=== PATIENT | male | born 1965 | race Caucasian/White ===

== ENCOUNTER 2018-09-04 12:22 | Inpatient (IN) ==
[2018-09-04] MEDS ORDERED: KETOROLAC TROMETHAMINE 15 MG/ML VIAL IV STA (12:46)
[2018-09-04 13:01] LABS: Basophils # (auto) 0.02 K/uL (0-0.2); Basophils % (auto) 0.2 %; Eosinophils # (auto) 0.02 K/uL (0-0.5); Eosinophils % (auto) 0.2 %; Hematocrit (blood only) 48.4 % (42-52); Hemoglobin 16.9 g/dL (14.0-18.0); Immature Granulocytes # (auto) 0.02 K/uL (0.00-0.02); Immature Granulocytes % (auto) 0.2 %; Lymphocytes # (auto) 1.66 K/uL (1.2-3.4); Lymphocytes % (auto) 14.4 %; Mean Corpuscular Hgb Conc 34.9 g/dL (32-36); Mean Corpuscular Volume 87.7 fL (80-100); Mean Platelet Volume 9.1 fL (7.4-10.4); Monocytes # (auto) 0.94 K/uL (0.11-0.59); Monocytes % (auto) 8.1 %; Neutrophils # (auto) 8.88 K/uL (1.4-6.5); Neutrophils % (auto) 76.9 %; Platelet Count 246 K/uL (130-400); RDW Coefficient of Variation 13.1 % (11.5-14.5); RDW Standard Deviation 41.9 fL (36.4-46.3); Red Blood Count 5.52 M/uL (4.7-6.1); White Blood Count 11.54 K/uL (4.8-10.8)
[2018-09-04 13:36] LABS: Alanine Aminotransferase 43 U/L (12-78); Albumin Level 3.7 gm/dl (3.4-5.0); Aspartate Aminotransferase 28 U/L (15-37); BUN Creatinine Ratio 16.6 (10-20); Blood Urea Nitrogen 16 mg/dl (7-18); Carbon Dioxide 27 mmol/L (21-32); Chloride 104 mmol/L (98-107); Creatinine Clr Calc Pharmacy 104.4 ml/min; Est GFR (African American) 101.8; Est GFR (Non-African American) 87.8; Glucose 104 mg/dl (70-99); Potassium 3.5 mmol/L (3.5-5.1); Sodium 136 mmol/L (136-145)
[2018-09-04 13:40] LABS: Albumin Globulin Ratio 0.9 (0.9-2); Alkaline Phosphatase 110 U/L (45-117); Bilirubin,Total 2.6 mg/dl (0.2-1); Globulin 4.1 gm/dl (2.5-4.0); Total Protein 7.8 gm/dl (6.4-8.2); Troponin I < 0.015 ng/ml (0-0.045)
--- NOTE | 2018-09-04 14:08 | Emergency Department Note ---
History of Present Illness General Chief complaint: Chest Pain Stated complaint: CHEST PAIN Source: patient Mode of arrival: ambulatory Limitations: no limitations History of Present Illness Maximum Pain Intensity: 10 This patient is a 52-year-old male who presents to the emergency department complaining of left-sided chest pain. The patient reports that he first developed some discomfort yesterday which has been gradually worsening. He states the pain feels like it is under his left rib cage and makes it difficult to breathe. He took Excedrin yesterday which did give him some relief. He states that the pain is "debilitating" and rates the discomfort a 7/10. He was seen at [facility] and they told him they saw a mass on his chest x-ray and referred him here. He denies any history of heart or lung problems. He denies recent travel. He is not a smoker. He reports his father had an [place] in his 50s. He denies any other family history of heart disease or blood clots. The patient does report that he spread something from us control on his grass this weekend and is unsure if he could have inhaled some of this. He denies any fevers, cough, palpitations or syncope. Home Medications Home Medications Medication Instructions Recorded Confirmed Type daekrsm-nemjamrrdtkcb-sjhpfwbs 2 tab PO Q6H PRN 09/04/18 09/04/18 History [Excedrin Extra Strength] rhejuvcquafiz-WM-saqfvkcygrzmr 30 ml PO DIRECTED 09/04/18 09/04/18 History [Vicks NyQuil Cold/Flu (cpm)] diclofenac sodium 50 mg PO DIRECTED PRN 09/04/18 09/04/18 History Allergies Allergy/AdvReac Type Severity Reaction Status Date / Time No Known Allergies Allergy Unverified 09/04/18 14:07 Past Med/Surg History Medical History No significant past medical history No significant past surgical history Family History Other Coronary heart disease Stroke Social History Preferred Language: Setswana Communication Ability: Effective Bond Broker Required: No Beliefs That Will Affect Care: None Current Living Situation: Spouse Other Information That Helps Us Care for You: No Feels Safe at Home: Yes Safety Concerns: Feels Safe At This Time Smoking Status: Never smoker Do You Dip or Chew Tobacco: No Second Hand Exposure: No Tobacco Cessation Education Requested by Patient: No Hx Alcohol Use: Yes Alcohol type: beer Hx Substance Use: No Review of Systems A total of 10 systems reviewed and were otherwise negative Physical Exam Vital Signs Vital Signs - 24 hr 09/04/18 12:23 09/04/18 15:38 09/04/18 15:42 Temperature 36.8 C Temperature Source Oral Sepsis New/Unexplained Change in Mental Status No Sepsis Action Taken by Nursing No Action Required Pulse Rate 98 H Pulse Rate [Left Finger] 96 H Respiratory Rate 20 20 Respiratory Effort / Characteristics Non-Labored Non-Labored Respiratory Depth Normal Normal Respiratory Pattern Blood Pressure 149/91 H Blood Pressure [Left Arm] Blood Pressure [Right Arm] 142/102 H Blood Pressure Mean 110 Blood Pressure Mean [Left Arm] Blood Pressure Mean [Right Arm] 115 Blood Pressure Position [Left Arm] Pulse Oximetry 97 94 Oxygen Delivery Method Room Air Room Air 09/04/18 17:06 09/04/18 17:23 09/04/18 18:27 Temperature Temperature Source Sepsis New/Unexplained Change in Mental Status Sepsis Action Taken by Nursing Pulse Rate 90 Pulse Rate [Left Finger] 88 Respiratory Rate 18 Respiratory Effort / Characteristics Non-Labored Respiratory Depth Normal Respiratory Pattern Blood Pressure Blood Pressure [Left Arm] Blood Pressure [Right Arm] 125/93 Blood Pressure Mean Blood Pressure Mean [Left Arm] Blood Pressure Mean [Right Arm] 103 Blood Pressure Position [Left Arm] Pulse Oximetry 96 Oxygen Delivery Method Room Air Room Air 09/04/18 18:29 Temperature 37 C Temperature Source Oral Sepsis New/Unexplained Change in Mental Status Sepsis Action Taken by Nursing Pulse Rate Pulse Rate [Left Finger] 88 Respiratory Rate 20 Respiratory Effort / Characteristics Non-Labored Spontaneous Respiratory Depth Respiratory Pattern Regular Blood Pressure Blood Pressure [Left Arm] 138/87 Blood Pressure [Right Arm] Blood Pressure Mean Blood Pressure Mean [Left Arm] 104 Blood Pressure Mean [Right Arm] Blood Pressure Position [Left Arm] Sitting Pulse Oximetry 94 Oxygen Delivery Method Room Air VITALS: Vitals are noted on the nurse's note and reviewed by myself. Vital signs stable. GENERAL: This is a 52-year-old male, in no acute distress, nondiaphoretic, well- developed well-nourished. SKIN: The skin was without rashes. EARS: External auditory canals clear, tympanic membranes pearly monique without e rythema or effusion bilaterally. EYES: Pupils equal round and reactive to light and accommodation. NOSE: Patent, turbinates without inflammation or discharge. MOUTH: Mucous membranes moist. Tonsils are not enlarged. Pharynx without erythema or exudate. NECK: Supple without nuchal rigidity. No lymphadenopathy. HEART: Regular rate and rhythm without murmurs gallops or rubs. LUNGS: Clear to auscultation bilaterally without wheezes, rales or rhonchi. No retractions or accessory muscle use. ABDOMEN: Positive bowel sounds x 4. Soft, nontender to palpation. No guarding or rebound tenderness. MUSCULOSKELETAL: No reproducible tenderness to palpation. NEURO: Patient was alert and oriented to person place and time. Course Consultations Consultation #1: Dr. Scout MAHMOOD hospitalist Administered Medications Heparin Sodium/Dextrose (Heparin Sodium/Dextrose) 25,000 units in 500 mls @ 31 mls/hr IV .Q16H8M [facility]; Protocol Stop: 10/04/18 18:29 Last Admin: 09/04/18 17:15 Dose: 1,550 units/hr, 31 mls/hr Documented by: [id number] Cosigned by: [id number] Oxycodone HCl (Roxicodone Immediate Rel) 5 mg PO Q4 PRN PRN Reason: Pain Stop: 09/18/18 18:22 Last Admin: 09/04/18 19:53 Dose: 5 mg Documented by: [id number] Discontinued Medications Heparin Sodium (Porcine) (Heparin Sodium (Porcine)) Confirm Administered Dose 10,000 units .ROUTE .STK-MED ONE Stop: 09/04/18 16:55 Last Admin: 09/04/18 17:08 Dose: 7,000 units Documented by: [id number] Cosigned by: [id number] Heparin Sodium/Dextrose () 1 ea IV NOW STA; Protocol Stop: 09/04/18 15:04 Last Admin: 09/04/18 17:12 Dose: Not Given Documented by: [id number] Heparin Sodium/Dextrose (Heparin Sodium/Dextrose) Confirm Administered Dose 25,000 units IV .STK-MED ONE Stop: 09/04/18 16:54 Last Admin: 09/04/18 17:08 Dose: 31 ml Documented by: [id number] Cosigned by: [id number] Heparin Sodium/Dextrose () 1 ea IV ONE ONE; Protocol Stop: 09/04/18 18:24 Last Admin: 09/04/18 18:39 Dose: 1 ea Documented by: [id number] Ioversol (Optiray 320 125ml) 86 ml IV ONCE PRN PRN Reason: Interaction Checking Stop: 09/08/18 14:26 Last Admin: 09/04/18 14:27 Dose: 86 ml Documented by: [id number] Ketorolac Tromethamine (Toradol) 15 mg IV NOW STA Stop: 09/04/18 12:47 Last Admin: 09/04/18 12:50 Dose: 15 mg Documented by: [id number] Medical Decision Making Differential Diagnosis Differential diagnosis includes acute coronary syndrome, pulmonary embolism, pneumothorax, pericarditis, myocarditis, endocarditis, anxiety, musculoskeletal pain, GERD, costochondritis, pneumonia, among others. Home Medications Current Medication List: was personally reviewed by me Laboratory Data Attestation: I reviewed the patient's lab results. Result diagrams: 09/04/18 12:47 09/04/18 12:47 Lab Results 09/04/18 09/04/18 09/04/18 Range/Units 12:47 12:47 15:31 WBC 11.54 H (4.8-10.8) K/uL RBC 5.52 (4.7-6.1) M/uL Hgb 16.9 (14.0-18.0) g/dL Hct 48.4 (42-52) % MCV 87.7 (80-100) fL MCH 30.6 (25-34) pg MCHC 34.9 (32-36) g/dL RDW Std Deviation 41.9 (36.4-46.3) fL RDW Coeff of Radha 13.1 (11.5-14.5) % Plt Count 246 (130-400) K/uL MPV 9.1 (7.4-10.4) fL Immature Gran % (Auto) 0.2 % Neut % (Auto) 76.9 % Lymph % (Auto) 14.4 % Sawyer % (Auto) 8.1 % Eos % (Auto) 0.2 % Baso % (Auto) 0.2 % Immature Gran # (Auto) 0.02 (0.00-0.02) K/uL Neut # (Auto) 8.88 H (1.4-6.5) K/uL Lymph # (Auto) 1.66 (1.2-3.4) K/uL Sawyer # (Auto) 0.94 H (0.11-0.59) K/uL Eos # (Auto) 0.02 (0-0.5) K/uL Baso # (Auto) 0.02 (0-0.2) K/uL PT 10.5 (9.0-12.0) Seconds INR 1.0 (0.9-1.1) APTT 24.3 (21.0-31.0) Seconds PTT Ratio 0.9 Sodium 136 (136-145) mmol/L Potassium 3.5 (3.5-5.1) mmol/L Chloride 104 (98-107) mmol/L Carbon Dioxide 27 (21-32) mmol/L Anion Gap 5.0 (3-11) BUN 16 (7-18) mg/dl Creatinine 0.99 (0.6-1.4) mg/dl Est Cr Clr Drug Dosing 104.4 ml/min Est GFR ( Amer) 101.8 Est GFR (Non-Af Amer) 87.8 BUN/Creatinine Ratio 16.6 (10-20) Glucose 104 H (70-99) mg/dl Calcium 9.0 (8.5-10.1) mg/dl Total Bilirubin 2.6 H (0.2-1) mg/dl AST 28 (15-37) U/L ALT 43 (12-78) U/L Alkaline Phosphatase 110 (45-117) U/L Troponin I < 0.015 (0-0.045) ng/ml Total Protein 7.8 (6.4-8.2) gm/dl Albumin 3.7 (3.4-5.0) gm/dl Globulin 4.1 H (2.5-4.0) gm/dl Albumin/Globulin Ratio 0.9 (0.9-2) Imaging Data Attestation: I personally reviewed and interpreted this imaging study as fol lows: Radiologist's Impression: CT angio chest PE protocol FINDINGS: Thoracic aorta is normal in course and caliber. There are bibasilar parenchymal infiltrative changes. There is a small focal consolidative infiltrate lateral aspect left upper lobe. There are filling defects within the second third order vessels of the left lower lobe pulmonary vasculature as well as right upper lobe pulmonary vasculature. There is no evidence for a major central or saddle embolus. IMPRESSION: 1. Study is positive for bilateral pulmonary emboli. 2. Basilar parenchymal infiltrative change. 3. Small focal consolidative infiltrate lateral aspect left upper lobe. 4. No evidence for pulmonary arterial hypertension or right heart strain. BILATERAL LOWER EXTREMITY VENOUS DOPPLER HISTORY: Pulmonary embolus. Assess for DVT. COMPARISON STUDY: None. FINDINGS: There is normal compressibility, flow, and augmentation within the bilateral lower extremity deep venous systems. IMPRESSION: No DVT within the right or left lower extremity. ECG Data Attestation: I personally reviewed and interpreted this ECG as follows: Indication: chest pain Rate (beats per minute): 87 Rhythm: normal sinus Findings: no acute ischemic change and no ectopy Comparison ECG Date: no prior available Blood Pressure Blood Pressure Findings: Elevated blood pressure Blood Pressure Disposition: further management by hospitalist [facility] Narrative The patient is a 52-year-old male who presents today complaining of left-sided chest pain and shortness of breath. Labs revealed a mild leukocytosis. CT of the chest was performed and showed bilateral PEs. Troponin was not elevated and no evidence of right heart strain on CT. Patient is hemodynamically stable. CT scan did show some questionable infiltrates in left lower lung, although I would question whether this could be pulmonary infarct given patient's significant amount of pain. Pain was well controlled here with a dose of IV Toradol. Patient does not have any major risk factors for PE. Bilateral Doppler ultrasounds were performed. Hypercoagulable studies were ordered. Patient was started on a heparin bolus and drip. [facility]. Impression & Plan Pulmonary emboli Critical Care Time I have personally spent greater than 35 minutes of critical care time in the direct management of this patient. This includes bedside care, interpretation of diagnostic studies, and testing, discussion with consultants, patient, and family members, and other required patient management activities. This 35 minutes is in excess of all separately billable procedures. Critical Care Time: Yes Total Critical Care Time: 35 Discharge Plan Visit Data *Final* Discharge Date/Time: 09/04/18 17:23 Chief Complaint: Chest Pain Stated Complaint: CHEST PAIN ED Provider: Mata Damon ED Midlevel Provider: Carol Lal Discharge Problem: Pulmonary emboli Patient Disposition: Admitted As Inpatient Discharge Instructions Interventions: ED Discharge Assessment Last Done: 09/04/18 17:23 Discharge Problem: Pulmonary emboli Qualifiers: Pulmonary embolism type: unspecified Chronicity: acute Acute cor pulmonale presence: without acute cor pulmonale Qualified Code(s): I26.99 - Other pulmonary embolism without acute cor pulmonale
[2018-09-04] MEDS ORDERED: OPTIRAY 320 125ml IV PRN (14:27)
--- NOTE | 2018-09-04 14:35 | CT Scan Report ---
CT angio chest PE protocol CT DOSE: 508.26 mGy.cm HISTORY: Chest pain left sided cp, infiltrate vs mass on outside cxr TECHNIQUE: Multiaxial CT images of the chest were performed following the intravenous administration of contrast to evaluate the pulmonary arteries. Maximal intensity projection images were also obtaine d. A dose lowering technique was utilized adhering to the principles of ALARA. COMPARISON STUDY: None. FINDINGS: Thoracic aorta is normal in course and caliber. There are bibasilar parenchymal infiltrative changes. There is a small focal consolidative infiltrate lateral aspect left upper lobe. There are filling defects within the second third order vessels of the left lower lobe pulmonary vasc ulature as well as right upper lobe pulmonary vasculature. There is no evidence for a major central o r saddle embolus. IMPRESSION: 1. Study is positive for bilateral pulmonary emboli. 2. Basilar parenchymal infiltrative change. 3. Small focal consolidative infiltrate lateral aspect left upper lobe. 4. No evidence for pulmonary arterial hypertension or right heart strain. The above report was generated using voice recognition software. It may contain grammatical, syntax or spelling errors. Electronically signed by: Benjy Mak M.D. 09/04/2018 2:34 PM
--- NOTE | 2018-09-04 15:38 | History & Physical Report ---
Date of Service September 04, 2018 Assessment & Plan (1) Pulmonary emboli: Patient with bilateral PEs. Presently hemodynamically stable, NAD, not on supplemental O2. No clearly defined risk factors for DVT/PE. Patient is to have [place]-cancer screening performed by PCP. PSA normal by report. Hypercoagulable workup sent in ER. Patient with significant chest pain on arrival, improved with dose of Toradol 15mg. -Admit to medical floor with telemetry monitoring -Follow results of hypercoag workup and bilateral LE dopplers from ER -Heparin gtt -Pain control with Tylenol and Oxy IR PRN -Initiate oral anticoagulation in AM Present on Admission?: Yes (2) Leukocytosis: WBC=11.54. Most likely reactive. Patient denies fevers/chills/sweats or other complaints that may indicate underlying infectious process -Repeat CBC in AM -Continue to monitor for infection Present on Admission?: Yes (3) Elevated bilirubin: T-bili=2.6. No RUQ pain/tenderness -Repeat LFTs in AM -May consider outpatient RUQUS F/E/N- Heplock. Electrolytes WNL. Regular diet Ppx - Heparin gtt as above for PE tx Code - Full Dispo - Admit to medical floor with telemetry History of Present Illness Chief Complaint: bilateral pulmonary emboli Primary Care Provider: Eyal Patterson MD Miky Wiggins is a pleasant 52yo C male with no significant past medical or surgical history presenting with bandlike chest pain that started this AM. Pain is severe, located underneath his ribs, 10/10 in severity, L >R. Pain is pleuritic and worse with coughing. Denies chest pain/palpitations/dizziness. Denies fevers/chills/sweats. Had a sore throat 2 weeks ago that quickly resolved, no other URI complaints. Patient was seen at [facility] and had a CXR which was read as a possible mass. He was sent to the ER for additional workup. Patient hemodynamically stable, no O2 requirement, pain controlled with Toradol 15mg IV x 1 dose. CTA performed revealed bilateral PE as well as basilar parenchymal infiltrative change and small focal consolidative infiltrate in the RAEANN. No evidence of PAH or right heart strain. ER Course: Heparin gtt, Toradol Allergies Allergy/AdvReac Type Severity Reaction Status Date / Time No Known Allergies Allergy Unverified 09/04/18 14:07 Home Medications Home Medications Medication Instructions Recorded Confirmed Type nfbuwko-ljeoufpscatln-otfpdfqh 2 tab PO Q6H PRN 09/04/18 09/04/18 History [Excedrin Extra Strength] jafarwlubygif-JJ-tlhkbpracnfcz 30 ml PO DIRECTED 09/04/18 09/04/18 History [Vicks NyQuil Cold/Flu (cpm)] diclofenac sodium 50 mg PO DIRECTED PRN 09/04/18 09/04/18 History Past Med/Surg History Medical History No significant past medical history No significant past surgical history Family History Other Coronary heart disease Stroke Social History Preferred Language: Romansh Communication Ability: Effective Commercial Attorney Required: No Beliefs That Will Affect Care: None Current Living Situation: Spouse Other Information That Helps Us Care for You: No Feels Safe at Home: Yes Safety Concerns: Feels Safe At This Time Smoking Status: Never smoker Do You Dip or Chew Tobacco: No Second Hand Exposure: No Tobacco Cessation Education Requested by Patient: No Hx Alcohol Use: Yes Alcohol type: beer Hx Substance Use: No Review of Systems Review of Systems: All systems reviewed & are unremarkable except as noted in HPI & below pain under ribs bilaterally, L > R Physical Exam Physical Exam: General: patient resting comfortably, NAD, non-toxic in appearance, AA&O x 4 Skin: warm, dry, intact, no rashes or lesions HEENT: NC/AT, PERRL, EOMI, anicteric sclera, conjunctiva without injection, external ear normal to inspection and nontender, nares patent, moist mucus membranes, dentition intact, no oropharyngeal lesions, neck supple, trachea midline, no LAD, no thyromegaly, no JVD Heart: +S1/S2, regular, no m/r/g Lungs: equal air entry bilaterally, no rhonchi/wheezes, bibasilar crackles Abd: +BS, soft, NT/ND, no masses/organomegaly/ascites Ext: warm, 2+ pulses in UE/LE bilaterally, no clubbing/cyanosis or edema Neuro: nonfocal, patient AA&O x 4, speech intact, no facial droop, moving all extremities on command with equal strength 5/5 Results & Data Vital Signs (Past 12 Hours) Vital Signs Temp Pulse Resp BP Pulse Ox 09/04/18 12:23 36.8 C 98 H 20 149/91 H 97 Laboratory Results Lab Results 09/04/18 09/04/18 Range/Units 12:47 12:47 WBC 11.54 H (4.8-10.8) K/uL RBC 5.52 (4.7-6.1) M/uL Hgb 16.9 (14.0-18.0) g/dL Hct 48.4 (42-52) % MCV 87.7 (80-100) fL MCH 30.6 (25-34) pg MCHC 34.9 (32-36) g/dL RDW Std Deviation 41.9 (36.4-46.3) fL RDW Coeff of Radha 13.1 (11.5-14.5) % Plt Count 246 (130-400) K/uL MPV 9.1 (7.4-10.4) fL Immature Gran % (Auto) 0.2 % Neut % (Auto) 76.9 % Lymph % (Auto) 14.4 % Falls % (Auto) 8.1 % Eos % (Auto) 0.2 % Baso % (Auto) 0.2 % Immature Gran # (Auto) 0.02 (0.00-0.02) K/uL Neut # (Auto) 8.88 H (1.4-6.5) K/uL Lymph # (Auto) 1.66 (1.2-3.4) K/uL Falls # (Auto) 0.94 H (0.11-0.59) K/uL Eos # (Auto) 0.02 (0-0.5) K/uL Baso # (Auto) 0.02 (0-0.2) K/uL Sodium 136 (136-145) mmol/L Potassium 3.5 (3.5-5.1) mmol/L Chloride 104 (98-107) mmol/L Carbon Dioxide 27 (21-32) mmol/L Anion Gap 5.0 (3-11) BUN 16 (7-18) mg/dl Creatinine 0.99 (0.6-1.4) mg/dl Est Cr Clr Drug Dosing 104.4 ml/min Est GFR ( Amer) 101.8 Est GFR (Non-Af Amer) 87.8 BUN/Creatinine Ratio 16.6 (10-20) Glucose 104 H (70-99) mg/dl Calcium 9.0 (8.5-10.1) mg/dl Total Bilirubin 2.6 H (0.2-1) mg/dl AST 28 (15-37) U/L ALT 43 (12-78) U/L Alkaline Phosphatase 110 (45-117) U/L Troponin I < 0.015 (0-0.045) ng/ml Total Protein 7.8 (6.4-8.2) gm/dl Albumin 3.7 (3.4-5.0) gm/dl Globulin 4.1 H (2.5-4.0) gm/dl Albumin/Globulin Ratio 0.9 (0.9-2) Medications Administered CT angio chest PE protocol CT DOSE: 508.26 mGy.cm HISTORY: Chest pain left sided cp, infiltrate vs mass on outside cxr TECHNIQUE: Multiaxial CT images of the chest were performed following the intravenous administration of contrast to evaluate the pulmonary arteries. Maximal intensity projection images were also obtained. A dose lowering technique was utilized adhering to the principles of ALARA. COMPARISON STUDY: None. FINDINGS: Thoracic aorta is normal in course and caliber. There are bibasilar parenchymal infiltrative changes. There is a small focal consolidative infiltrate lateral aspect left upper lobe. There are filling defects within the second third order vessels of the left lower lobe pulmonary vasculature as well as right upper lobe pulmonary vasculature. There is no evidence for a major central or saddle embolus. IMPRESSION: 1. Study is positive for bilateral pulmonary emboli. 2. Basilar parenchymal infiltrative change. 3. Small focal consolidative infiltrate lateral aspect left upper lobe. 4. No evidence for pulmonary arterial hypertension or right heart strain. The above report was generated using voice recognition software. It may contain grammatical, syntax or spelling errors. Electronically signed by: Benjy Mak M.D. 09/04/2018 2:34 PM Dictated: 09/04/18 1429 Transcribed: 09/04/18 142 ECG Additional Comments: The study reveals NSR at 87, normal asix, QC=488, QRS=94, TZy=072, no acute ischemic changes, no evidence of right heart strain Code Status & VTE Plan Code Status Full VTE Prophylaxis Plan VTE Prophylaxis will be ordered: Yes (1) Leukocytosis Leukocytosis type: unspecified Qualified Code(s): D72.829 - Elevated white blood cell count, unspecified (2) Pulmonary emboli Acute cor pulmonale presence: without acute cor pulmonale Chronicity: acute Pulmonary embolism type: other Qualified Code(s): I26.99 - Other pulmonary embolism without acute cor pulmonale
--- NOTE | 2018-09-04 16:39 | Ultrasound Report ---
BILATERAL LOWER EXTREMITY VENOUS DOPPLER HISTORY: Pulmonary embolus. Assess for DVT. COMPARISON STUDY: None. FINDINGS: There is normal compressibility, flow, and augmentation within the bilateral lower extremit y deep venous systems. IMPRESSION: No DVT within the right or left lower extremity. Electronically signed by: Sloan Haque M.D. 09/04/2018 4:38 PM
[2018-09-04 16:52] LABS: Partial Thromboplastin Ratio 0.9; Partial Thromboplastin Time 24.3 Seconds (21.0-31.0); Prothrombin Time 10.5 Seconds (9.0-12.0)
[2018-09-04] MEDS ORDERED: HEPARIN 25000 UNIT/500 ML D5W IV ONE (16:53)
[2018-09-04] MEDS ORDERED: HEPARIN SOD 5,000 UNIT/0.5 ML VIAL ONE (16:54)
[2018-09-04] MEDS: Heparin Adult STANDARD Wt-Based Dextrose 5% 25,000 units/500 mL IV SCH (17:15)
[2018-09-04] MEDS ORDERED: ONDANSETRON INJ 2 MG/ML 2 ML VIAL IV PRN (18:23)
[2018-09-04] MEDS ORDERED: Heparin IV Standard *NO* Bolus IV ONE (18:23)
[2018-09-04] MEDS ORDERED: ACETAMINOPHEN 325 MG TAB PO PRN (18:23)
[2018-09-04] MEDS: OXYCODONE HCL IR 5 MG TAB (IMMEDIATE RELEASE) PO PRN (19:53)
[2018-09-04 23:36] LABS: Partial Thromboplastin Time 55.5 Seconds (21.0-31.0)
[2018-09-05] MEDS: OXYCODONE HCL IR 5 MG TAB (IMMEDIATE RELEASE) PO PRN ×5 (04:15→23:13)
[2018-09-05] MEDS ORDERED: KETOROLAC TROMETHAMINE 15 MG/ML VIAL IV ONE (05:51)
[2018-09-05 08:05] LABS: Hematocrit (blood only) 43.9 % (42-52); Hemoglobin 15.2 g/dL (14.0-18.0); Mean Corpuscular Hgb Conc 34.6 g/dL (32-36); Mean Corpuscular Volume 88.2 fL (80-100); Mean Platelet Volume 9.1 fL (7.4-10.4); Platelet Count 226 K/uL (130-400); RDW Coefficient of Variation 13.2 % (11.5-14.5); RDW Standard Deviation 42.6 fL (36.4-46.3); Red Blood Count 4.98 M/uL (4.7-6.1); White Blood Count 10.53 K/uL (4.8-10.8)
[2018-09-05 08:25] LABS: Partial Thromboplastin Ratio 1.7
[2018-09-05 08:38] LABS: Albumin Level 3.1 gm/dl (3.4-5.0); Bilirubin Direct 0.5 mg/dl (0-0.2); Bilirubin,Total 2.6 mg/dl (0.2-1); Total Protein 6.7 gm/dl (6.4-8.2)
[2018-09-05] MEDS: Heparin Adult STANDARD Wt-Based Dextrose 5% 25,000 units/500 mL IV SCH (08:48)
[2018-09-05 09:02] LABS: Partial Thromboplastin Time 46.7 Seconds (21.0-31.0)
--- NOTE | 2018-09-05 11:07 | Hospitalist Progress Note ---
Date of Service September 05, 2018 Assessment & Plan (1) Pulmonary emboli: 2nd/3rd order vessels on CTA. Dopplers neg for DVT. No risk factors identified (no recent surgery, immobility, family history of VTE, known cancer, etc). Has been overall very healthy until the last few days. Currently on heparin. Will transition to eliquis BID if insurance cost is reasonable. Hypercoagulable w/u sent and is pending but again no family h/o VTE, miscarriages, etc. Agree w/ Dr. Butterfield that colonoscopy should be pursued as outpatient along with other routine cancer screenings. Plan 6 months of Rx. Has fairly loud s2 on cardiac exam -- check echo to look at RV, etc. Treat pleuritic pain as needed. Present on Admission?: Yes (2) Leukocytosis: Was ill on Tuesday and has RAEANN pneumonia on CTA chest. Would treat for RAEANN pneumonia - see below. Present on Admission?: Yes (3) Elevated bilirubin: T. bili 2.6. Repeat today similar. D. bili minimally elevated. T. bili in 2016 was also elevated in low-2 range. This likely presents Gilbert's. Could consider outpatient RUQ u/s and other work-up but again the chronicity and indirect hyperbilirubinemia suggests Gilbert's. I discussed this with the patient today. Present on Admission?: Yes (4) Community acquired pneumonia: RAEANN on CT chest. Mild infiltrates bases as well. I believe his fever/chills/etc on Tuesday was due to such. Would Rx for pneumonia w/ levaquin 750mg daily x 7 days. In light of unknown cause of PEs and unusual location for a portion of the pneumonia (RAEANN) would advise repeat CT chest in 6 weeks to ensure this RAEANN abnormality has resolved and is not a lung cancer. If pain is controlled, O2 sats stable w/ walking ,etc could potentially be d/c later tonight. Present on Admission?: Yes Subjective Main complaint is pleuritic pain requiring pain meds and toradol. Minimal STINSON. No dyspnea at rest. Had subjective fever, chills, and felt like he had the flu on . These symptoms have improved since then. No family h/o VTE. No recent surgery. No recent travel. No varicose veins. No immobility. Feeling well last few months -- no weight loss, fatigue, or anorexia. Review of Systems Constitutional: no weight loss Respiratory: + cough, + dyspnea on exertion and + pain on inspiration; no hemoptysis and no sputum production Cardiovascular: as per Subjective / HPI and + chest pain; no orthopnea, no paroxysmal nocturnal dyspnea and no edema Gastrointestinal: no abdominal pain Physical Exam Constitutional: well developed, well nourished and average body habitus; no acute distress and not ill appearing ENMT: external ear and nose normal, oropharynx normal Respiratory: no respiratory distress Auscultation: + rales (fine - bibasilar; good airation); no wheezes Cardiovascular: Rate/Rhythm: regular rate and regular rhythm Heart Sounds: normal S1; + abnormal S2 (loud P2) and no murmur Vessels: posterior tibial pulses present and dorsalis pedis pulses present; no JVD Extremities: no edema and no varicosities Gastrointestinal (Abdomen): normal bowel sounds, soft, nontender, no hepatosplenomegaly Psychiatric: A+Ox3, euthymic affect Lymphatic: no cervical lymphadenopathy Results & Data Vital Signs (Past 12 Hours) Vital Signs Temp Pulse Pulse Resp BP BP Pulse Ox 09/05/18 07:43 81 09/05/18 07:00 36.9 C 80 16 121/81 91 09/05/18 04:24 37.4 C 97 H 16 118/73 96 09/05/18 04:15 36.8 C 77 18 140/91 90 09/05/18 00:00 84 09/04/18 23:43 36.7 C 90 16 128/83 91 Laboratory Results Laboratory Results - last 24 hr 09/04/18 09/04/18 09/04/18 12:47 12:47 15:31 WBC 11.54 H RBC 5.52 Hgb 16.9 Hct 48.4 MCV 87.7 MCH 30.6 MCHC 34.9 RDW Std Deviation 41.9 RDW Coeff of Radha 13.1 Plt Count 246 MPV 9.1 Immature Gran % (Auto) 0.2 Neut % (Auto) 76.9 Lymph % (Auto) 14.4 [place] % (Auto) 8.1 Eos % (Auto) 0.2 Baso % (Auto) 0.2 Immature Gran # (Auto) 0.02 Neut # (Auto) 8.88 H Lymph # (Auto) 1.66 [place] # (Auto) 0.94 H Eos # (Auto) 0.02 Baso # (Auto) 0.02 PT 10.5 INR 1.0 APTT 24.3 PTT Ratio 0.9 Sodium 136 Potassium 3.5 Chloride 104 Carbon Dioxide 27 Anion Gap 5.0 BUN 16 Creatinine 0.99 Est Cr Clr Drug Dosing 104.4 Est GFR ( Amer) 101.8 Est GFR (Non-Af Amer) 87.8 BUN/Creatinine Ratio 16.6 Glucose 104 H Calcium 9.0 Total Bilirubin 2.6 H Direct Bilirubin AST 28 ALT 43 Alkaline Phosphatase 110 Troponin I < 0.015 Total Protein 7.8 Albumin 3.7 Globulin 4.1 H Albumin/Globulin Ratio 0.9 09/04/18 09/05/18 09/05/18 22:59 07:36 07:36 WBC 10.53 RBC 4.98 Hgb 15.2 Hct 43.9 MCV 88.2 MCH 30.5 MCHC 34.6 RDW Std Deviation 42.6 RDW Coeff of Radha 13.2 Plt Count 226 MPV 9.1 Immature Gran % (Auto) Neut % (Auto) Lymph % (Auto) [place] % (Auto) Eos % (Auto) Baso % (Auto) Immature Gran # (Auto) Neut # (Auto) Lymph # (Auto) [place] # (Auto) Eos # (Auto) Baso # (Auto) PT INR APTT 55.5 H* PTT Ratio 2.0 Sodium Potassium Chloride Carbon Dioxide Anion Gap BUN Creatinine Est Cr Clr Drug Dosing Est GFR ( Amer) Est GFR (Non-Af Amer) BUN/Creatinine Ratio Glucose Calcium Total Bilirubin 2.6 H Direct Bilirubin 0.5 H AST 27 ALT 38 Alkaline Phosphatase 106 Troponin I Total Protein 6.7 Albumin 3.1 L Globulin Albumin/Globulin Ratio 09/05/18 07:36 WBC RBC Hgb Hct MCV MCH MCHC RDW Std Deviation RDW Coeff of Radha Plt Count MPV Immature Gran % (Auto) Neut % (Auto) Lymph % (Auto) [place] % (Auto) Eos % (Auto) Baso % (Auto) Immature Gran # (Auto) Neut # (Auto) Lymph # (Auto) [place] # (Auto) Eos # (Auto) Baso # (Auto) PT INR APTT 46.7 H* PTT Ratio 1.7 Sodium Potassium Chloride Carbon Dioxide Anion Gap BUN Creatinine Est Cr Clr Drug Dosing Est GFR ( Amer) Est GFR (Non-Af Amer) BUN/Creatinine Ratio Glucose Calcium Total Bilirubin Direct Bilirubin AST ALT Alkaline Phosphatase Troponin I Total Protein Albumin Globulin Albumin/Globulin Ratio Diagnostic Findings b/l LE venous dopplers - neg for DVT (1) Pulmonary emboli Pulmonary embolism type: unspecified Chronicity: acute Acute cor pulmonale presence: without acute cor pulmonale Qualified Code(s): I26.99 - Other pulmonary embolism without acute cor pulmonale (2) Leukocytosis Leukocytosis type: unspecified Qualified Code(s): D72.829 - Elevated white blood cell count, unspecified (3) Community acquired pneumonia Laterality: left Lung location: upper lobe of lung Qualified Code(s): J18.1 - Lobar pneumonia, unspecified organism
[2018-09-05] MEDS: levoFLOXacin 750 MG TAB PO SCH (11:58)
[2018-09-05] MEDS ORDERED: ACETAMINOPHEN 1,000 MG/100 ML VIAL IV PRN (18:28)
[2018-09-05] MEDS: MoRPHine SULFATE 2 MG/ML CARP IV PRN (19:06)
[2018-09-05] MEDS: LIDOCAINE 5% 1 PATCH TD SCH (20:18)
[2018-09-05] MEDS: APIXABAN 5 MG TABLET PO SCH (20:18)
[2018-09-05] MEDS ORDERED: APIXABAN 2.5 MG TAB PO SCH (21:00)
[2018-09-06] MEDS: MoRPHine SULFATE 2 MG/ML CARP IV PRN (05:31)
[2018-09-06] MEDS: OXYCODONE HCL IR 5 MG TAB (IMMEDIATE RELEASE) PO PRN (05:58)
[2018-09-06] MEDS ORDERED: KETOROLAC TROMETHAMINE 15 MG/ML VIAL IV ONE (06:50)
[2018-09-06] MEDS: APIXABAN 5 MG TABLET PO SCH ×2 (08:03→20:30)
[2018-09-06] MEDS: LIDOCAINE 5% 1 PATCH TD SCH (08:04)
[2018-09-06] MEDS: levoFLOXacin 750 MG TAB PO SCH (11:42)
--- NOTE | 2018-09-06 17:20 | Hospitalist Progress Note ---
Date of Service September 06, 2018 Assessment & Plan (1) Pulmonary emboli: Bilateral PEs in the 2nd/3rd order vessels on CTA. Dopplers neg for DVT of the lower extremities bilaterally. No risk factors identified (no recent surgery, immobility, family history of VTE, known cancer, etc). Has been overall very healthy until the last few days. Was initially on heparin drip and has since been transitioned to a loading dose of Eliquis 10 mg p.o. twice daily Hypercoagulable w/u sent and is pending but again no family h/o VTE, miscarriages, etc. Echocardiogram only with grade 2 diastolic dysfunction but with normal right- sided function and pressure Not requiring oxygen but is mildly hypoxic with pulse ox of 90 to 91% on room air -Colonoscopy should be pursued as outpatient along with other routine cancer screenings. -Plan 6 months of Rx. -Continue spare use of Toradol and NSAIDs as needed for pleuritic chest pain, but gave caution with risk of increased bleeding -Discontinue morphine and other opioids as they do not help him -Continue incentive spirometry -Encourage ambulation (2) Leukocytosis: Was ill on Tuesday and has RAEANN pneumonia on CTA chest. Would treat for RAEANN pneumonia - see below. Leukocytosis now resolved (3) Elevated bilirubin: T. bili 2.6 upon admission and the repeat the next day with similar D. bili minimally elevated at 0.5. T. bili in 2015 was also elevated in low-2 range. This likely presents Gilbert's. Could consider outpatient RUQ u/s and other work-up but again the chronicity and indirect hyperbilirubinemia suggests Gilbert's. -Follow LFTs again in the morning (4) Community acquired pneumonia: RAEANN on CT chest. Mild infiltrates bases as well. I believe his fever/chills/etc on Tuesday prior to admission was due to such. -Continue to Rx for pneumonia w/ levaquin 750mg daily x 7 days. In light of unknown cause of PEs and unusual location for a portion of the pneumonia (RAEANN) would advise repeat CT chest in 6 weeks to ensure this RAEANN abnormality has resolved and is not a lung cancer. (5) DVT prophylaxis: On Eliquis for acute PE as above Disposition-remain overnight for continued pain control and hopeful for discharge to home tomorrow Subjective Patient reports the opioids are not helping at all with his pleuritic pain in the left side, however the Toradol dose he received this morning dramatically improved his pain for almost the entire day until this evening. He is requesting another dose this evening. We discussed that NSAIDs are also a blood thinner and does increase his risk for bleeding, but he reports that the only thing that has helped him. He denies shortness of breath except with movement when he is to take deep breaths. Denies nausea or vomiting. He is constipated. He reports he did check with multiple family members and there is no history of any blood clots or miscarriages in women and his family. Telemetry with sinus tachycardia and normal sinus rhythm with rates to the 80s to 100s Review of Systems Review of Systems: All systems reviewed & are unremarkable except as noted in HPI & below Physical Exam Constitutional: WD/WN, vitals as above Eyes: PERRL, conjunctivae normal, anicteric sclerae ENMT: external ear and nose normal, oropharynx normal Neck: trachea midline, no thyromegaly Respiratory: + abnormal respiratory effort (He has splinting with deep inspiration) Auscultation: no crackles, no rhonchi and no wheezes Cardiovascular: RRR, no murmur, no edema Gastrointestinal (Abdomen): normal bowel sounds, soft, nontender, no hepatosplenomegaly Musculoskeletal: Extremities: extremities normal to inspection; no cyanosis and no clubbing Skin: no rashes, warm and dry Neurologic: moves all extremities and awake; no focal motor deficits Psychiatric: A+Ox3, euthymic affect Results & Data Vital Signs (Past 12 Hours) Vital Signs Temp Pulse Pulse Resp BP BP Pulse Ox 09/06/18 16:20 92 H 09/06/18 15:43 36.7 C 91 H 18 121/83 91 09/06/18 12:22 37.0 C 100 H 18 119/80 90 09/06/18 08:00 94 H 09/06/18 07:42 36.9 C 93 H 18 129/89 92 (1) Leukocytosis Leukocytosis type: unspecified Qualified Code(s): D72.829 - Elevated white blood cell count, unspecified (2) Community acquired pneumonia Laterality: left Lung location: upper lobe of lung Qualified Code(s): J18.1 - Lobar pneumonia, unspecified organism (3) Pulmonary emboli Acute cor pulmonale presence: without acute cor pulmonale Chronicity: acute Pulmonary embolism type: unspecified Qualified Code(s): I26.99 - Other pulmonary embolism without acute cor pulmonale
[2018-09-06] MEDS: KETOROLAC TROMETHAMINE 15 MG/ML VIAL IV PRN (17:53)
[2018-09-06] MEDS: DOCUSATE SODIUM/SENNA 50/8.6MG TAB PO SCH (20:30)
[2018-09-07] MEDS: KETOROLAC TROMETHAMINE 15 MG/ML VIAL IV PRN (01:30)
[2018-09-07 08:03] LABS: Basophils # (auto) 0.02 K/uL (0-0.2); Basophils % (auto) 0.2 %; Eosinophils # (auto) 0.05 K/uL (0-0.5); Eosinophils % (auto) 0.6 %; Hematocrit (blood only) 41.3 % (42-52); Hemoglobin 13.9 g/dL (14.0-18.0); Immature Granulocytes # (auto) 0.03 K/uL (0.00-0.02); Immature Granulocytes % (auto) 0.4 %; Lymphocytes # (auto) 1.51 K/uL (1.2-3.4); Lymphocytes % (auto) 18.6 %; Mean Corpuscular Hgb Conc 33.7 g/dL (32-36); Mean Corpuscular Volume 89.2 fL (80-100); Monocytes # (auto) 0.84 K/uL (0.11-0.59); Monocytes % (auto) 10.4 %; Neutrophils # (auto) 5.66 K/uL (1.4-6.5); Neutrophils % (auto) 69.8 %; Platelet Count 258 K/uL (130-400); RDW Coefficient of Variation 13.1 % (11.5-14.5); RDW Standard Deviation 42.9 fL (36.4-46.3); Red Blood Count 4.63 M/uL (4.7-6.1); White Blood Count 8.11 K/uL (4.8-10.8)
[2018-09-07 08:31] LABS: Albumin Level 2.5 gm/dl (3.4-5.0); BUN Creatinine Ratio 21.3 (10-20); Bilirubin Direct 0.4 mg/dl (0-0.2); Calcium 8.7 mg/dl (8.5-10.1); Creatinine Clr Calc Pharmacy 115.5 ml/min; Est GFR (African American) 114.7; Potassium 3.5 mmol/L (3.5-5.1)
[2018-09-07 08:35] LABS: Bilirubin,Total 1.7 mg/dl (0.2-1); Total Protein 6.4 gm/dl (6.4-8.2)
[2018-09-07] MEDS: APIXABAN 5 MG TABLET PO SCH ×2 (10:09→20:43)
[2018-09-07] MEDS: LIDOCAINE 5% 1 PATCH TD SCH (10:09)
[2018-09-07] MEDS: levoFLOXacin 750 MG TAB PO SCH (15:37)
[2018-09-07] MEDS ORDERED: MAGNESIUM CITRATE 296 ML/BTL PO STA (18:00)
--- NOTE | 2018-09-07 18:01 | Hospitalist Progress Note ---
Date of Service September 07, 2018 Assessment & Plan (1) Pulmonary emboli: Bilateral PEs in the 2nd/3rd order vessels on CTA. Dopplers neg for DVT of the lower extremities bilaterally. No risk factors identified (no recent surgery, immobility, family history of VTE, known cancer, etc). Has been overall very healthy until the last few days. Was initially on heparin drip and has since been transitioned to a loading dose of Eliquis 10 mg p.o. twice daily-today is day #3 of 7, then will need to go to 5mg po bid Hypercoagulable w/u sent and is pending but again no family h/o VTE, miscarriages, etc. So far, only homocysteine is back and is within normal limits Echocardiogram only with grade 2 diastolic dysfunction but with normal right- sided function and pressure Not requiring oxygen but is mildly hypoxic with pulse ox of 90 to 91% on room air -ambulate with POx today -Colonoscopy should be pursued as outpatient along with other routine cancer screenings. -Plan 6 months of Rx. -Continue spare use of Toradol as needed for pleuritic chest pain, but gave caution with risk of increased bleeding -Discontinued morphine and other opioids as they do not help him -Continue incentive spirometry (2) Leukocytosis: Was ill on Tuesday and has RAEANN pneumonia on CTA chest. Would treat for RAEANN pneumonia - see below. Leukocytosis now resolved (3) Elevated bilirubin: T. bili 2.6 upon admission and the repeat the next day with similar, now much improved to 1.7 D. bili minimally elevated at 0.4. T. bili in 2016 was also elevated in low-2 range. This likely presents Gilbert's. Could consider outpatient RUQ u/s and other work-up but again the chronicity and indirect hyperbilirubinemia suggests Gilbert's. (4) Community acquired pneumonia: RAEANN on CT chest. Mild infiltrates bases as well. I believe his fever/chills/etc on Tuesday prior to admission was due to such. -Continue to Rx for pneumonia w/ levaquin 750mg daily x 7 days.Today is day #3 In light of unknown cause of PEs and unusual location for a portion of the pneumonia (RAEANN) would advise repeat CT chest in 6 weeks to ensure this RAEANN abnormality has resolved and is not a lung cancer. (5) Constipation: No BM in 6 days likely secondary to opioids and relative immobility in hospital -encouraged ambulation -continue senna/docusate -add bottle Mag citrate today (6) DVT prophylaxis: On Eliquis for acute PE as above Disposition-remain overnight again for continued pain control and hopeful for discharge to home tomorrow Subjective Pain is improved in the left ribs, hasn't taken a dose of toradol since 0130 today (17 hours ago). Does have a mild headache which he gets frequently but also normally drinks 2 soda bottles a day with caffeine and hasn't had any soda since admission. Has a dry cough today. Is worried about going home just yet, wants to stay another night. Also still no BM in 6 days. He wants to ambulate in the halls Tele with [facility] 90s-120s. Review of Systems Review of Systems: All systems reviewed & are unremarkable except as noted in HPI & below Physical Exam Constitutional: WD/WN, vitals as above Eyes: PERRL, conjunctivae normal, anicteric sclerae Neck: trachea midline, no thyromegaly Respiratory: + abnormal respiratory effort (He has splinting with deep inspiration and mild short dry cough) Auscultation: no crackles, no rhonchi and no wheezes Cardiovascular: RRR, no murmur, no edema Gastrointestinal (Abdomen): normal bowel sounds, soft, nontender, no hepatosplenomegaly Musculoskeletal: Extremities: extremities normal to inspection; no cyanosis and no clubbing Skin: no rashes, warm and dry Neurologic: moves all extremities and awake; no focal motor deficits Psychiatric: A+Ox3, euthymic affect Results & Data Vital Signs (Past 12 Hours) Vital Signs Temp Pulse Pulse Resp BP Pulse Ox 09/07/18 15:44 100 H 09/07/18 15:05 37.1 C 102 H 18 124/86 91 09/07/18 11:54 37.2 C 90 16 141/90 H 91 09/07/18 08:00 83 09/07/18 07:44 36.4 C L 88 18 139/88 92 Laboratory Results 09/07/18 09/07/18 09/04/18 Range/Units 07:27 07:27 15:31 WBC 8.11 (4.8-10.8) K/uL RBC 4.63 L (4.7-6.1) M/uL Hgb 13.9 L (14.0-18.0) g/dL Hct 41.3 L (42-52) % MCV 89.2 (80-100) fL MCH 30.0 (25-34) pg MCHC 33.7 (32-36) g/dL RDW Std Deviation 42.9 (36.4-46.3) fL RDW Coeff of Radha 13.1 (11.5-14.5) % Plt Count 258 (130-400) K/uL MPV 9.0 (7.4-10.4) fL Immature Gran % (Auto) 0.4 % Neut % (Auto) 69.8 % Lymph % (Auto) 18.6 % [place] % (Auto) 10.4 % Eos % (Auto) 0.6 % Baso % (Auto) 0.2 % Immature Gran # (Auto) 0.03 H (0.00-0.02) K/uL Neut # (Auto) 5.66 (1.4-6.5) K/uL Lymph # (Auto) 1.51 (1.2-3.4) K/uL [place] # (Auto) 0.84 H (0.11-0.59) K/uL Eos # (Auto) 0.05 (0-0.5) K/uL Baso # (Auto) 0.02 (0-0.2) K/uL Sodium 138 (136-145) mmol/L Potassium 3.5 (3.5-5.1) mmol/L Chloride 104 (98-107) mmol/L Carbon Dioxide 28 (21-32) mmol/L Anion Gap 6.0 (3-11) BUN 19 H (7-18) mg/dl Creatinine 0.89 (0.6-1.4) mg/dl Est Cr Clr Drug Dosing 115.5 ml/min Est GFR ( Amer) 114.7 Est GFR (Non-Af Amer) 99.0 BUN/Creatinine Ratio 21.3 H (10-20) Glucose 92 (70-99) mg/dl Calcium 8.7 (8.5-10.1) mg/dl Total Bilirubin 1.7 H (0.2-1) mg/dl Direct Bilirubin 0.4 H (0-0.2) mg/dl AST 34 (15-37) U/L ALT 44 (12-78) U/L Alkaline Phosphatase 107 (45-117) U/L Total Protein 6.4 (6.4-8.2) gm/dl Albumin 2.5 L (3.4-5.0) gm/dl Homocysteine 10.0 (<11.4) UMOL/L (1) Pulmonary emboli Pulmonary embolism type: unspecified Chronicity: acute Acute cor pulmonale presence: without acute cor pulmonale Qualified Code(s): I26.99 - Other pulmonary embolism without acute cor pulmonale (2) Leukocytosis Leukocytosis type: unspecified Qualified Code(s): D72.829 - Elevated white blood cell count, unspecified (3) Community acquired pneumonia Laterality: left Lung location: upper lobe of lung Qualified Code(s): J18.1 - Lobar pneumonia, unspecified organism
[2018-09-07] MEDS: DOCUSATE SODIUM/SENNA 50/8.6MG TAB PO SCH (20:43)
[2018-09-08] MEDS: KETOROLAC TROMETHAMINE 15 MG/ML VIAL IV PRN (00:42)
[2018-09-08] MEDS: APIXABAN 5 MG TABLET PO SCH (08:40)
[2018-09-08] MEDS: LIDOCAINE 5% 1 PATCH TD SCH (08:40)
[2018-09-08] MEDS ORDERED: IBUPROFEN 600 MG TAB PO PRN (10:10)
[2018-09-08] MEDS: levoFLOXacin 750 MG TAB PO SCH (12:28)
--- NOTE | 2018-09-08 16:39 | Discharge Summary ---
Date of Service September 08, 2018 Admission HPI Per Admitting Provider Miky Wiggins is a pleasant 52yo C male with no significant past medical or surgical history presenting with bandlike chest pain that started this AM. Pain is severe, located underneath his ribs, 10/10 in severity, L >R. Pain is pleuritic and worse with coughing. Denies chest pain/palpitations/dizziness. Denies fevers/chills/sweats. Had a sore throat 2 weeks ago that quickly resolved, no other URI complaints. Patient was seen at [facility] and had a CXR which was read as a possible mass. He was sent to the ER for additional workup. Patient hemodynamically stable, no O2 requirement, pain controlled with Toradol 15mg IV x 1 dose. CTA performed revealed bilateral PE as well as basilar parenchymal infiltrative change and small focal consolidative infiltrate in the RAEANN. No evidence of PAH or right heart strain. ER Course: Heparin gtt, Toradol Principal Diagnosis Pulmonary emboli Discharge Exam Constitutional WD/WN, vitals as above Eyes PERRL, conjunctivae normal, anicteric sclerae ENMT external ear and nose normal, oropharynx normal Neck trachea midline, no thyromegaly Respiratory normal respiratory effort Auscultation: + diminished lung sounds (at the left base); no crackles, no rhonchi and no wheezes Cardiovascular RRR, no murmur, no edema Gastrointestinal (Abdomen) normal bowel sounds, soft, nontender, no hepatosplenomegaly Musculoskeletal Extremities: extremities normal to inspection; no cyanosis and no clubbing Skin no rashes, warm and dry Neurologic moves all extremities and awake; no focal motor deficits Psychiatric A+Ox3, euthymic affect Discharge Data Allergies Allergy/AdvReac Type Severity Reaction Status Date / Time No Known Allergies Allergy Unverified 09/04/18 14:07 Consultations None Ordered Studies 09/04/18 12:45 CT angio chest PE protocol Stat 09/04/18 15:29 US venous doppler LE Stat Hospital Course (1) Pulmonary emboli: Bilateral PEs in the 2nd/3rd order vessels on CTA. Dopplers neg for DVT of the lower extremities bilaterally. No risk factors identified (no recent surgery, immobility, family history of VTE, known cancer, etc). Has been overall very healthy until the last few days prior to admission. Was initially on heparin drip and has since been transitioned to a loading dose of Eliquis 10 mg p.o. twice daily-today is day #4 of 7, then will need to go to 5mg po bid Hypercoagulable w/u sent and is pending but again no family h/o VTE, miscarriages, etc. So far, only homocysteine is back and is within normal limits Echocardiogram only with grade 2 diastolic dysfunction but with normal right- sided function and pressure Not requiring oxygen but is mildly hypoxic with pulse ox of 90 to 94% on room air which improved with ambulating. He does not need home O2 -Colonoscopy should be pursued as outpatient along with other routine cancer screenings as w/u for underlying hypercoagulable state. -Plan 6 months of Rx with Eliquis as a minimum -Continue pain control after discharge with tylenol prn -Continue incentive spirometry (2) Leukocytosis: Was ill on Tuesday and has RAEANN pneumonia on CTA chest. Would treat for RAEANN pneumonia - see below. Leukocytosis now resolved (3) Elevated bilirubin: T. bili 2.6 upon admission and the repeat the next day with similar, now much improved to 1.7 D. bili minimally elevated at 0.4. T. bili in 2016 was also elevated in low-2 range. This likely presents Gilbert's. Could consider outpatient RUQ u/s and other work-up but again the chronicity and indirect hyperbilirubinemia suggests Gilbert's. (4) Community acquired pneumonia: RAEANN on CT chest. Mild infiltrates bases as well. I believe his fever/chills/etc on Tuesday prior to admission was due to such. -Continue to Rx for pneumonia w/ levaquin 750mg daily x 7 days.Today is day #4 In light of unknown cause of PEs and unusual location for a portion of the pneumonia (RAEANN) would advise repeat CT chest in 6 weeks to ensure this RAEANN abnormality has resolved and is not a lung cancer. (5) Constipation: No BM in 6 days likely secondary to opioids and relative immobility in hospital-resolved on the day of discharge after Mag citrate and senna/docusate -encouraged ambulation (6) DVT prophylaxis: On Eliquis for acute PE as above Disposition-stable for dc to home Total Time Total Time Spent Total Time Spent (In Minutes): >30 min Total Time Includes: Examination of the Patient, Discharge Planning and Medicati on Reconciliation Discharge Plan Discharge Items Patient Disposition: Home - Self-Care Reason For Visit: CHEST PAIN Discharge Diagnosis: Pulmonary emboli, pneumonia Condition: Good Discharge Goals: Decrease discomfort, Diagnostic testing, Improve disease control, Learn about illness and Therapeutic intervention Activity: Resume your previous activity Lifting: Gradually increase as tolerated Bathing: No limitations Exercise/Sports: Gradually increase as tolerated Driving/Machine Use: No limitations Non-emergency contact: Primary Care Provider Call non-emergency contact if: you have any medication questions, your symptoms worsen, your pain is not controlled, your pain is worsening, your pain is unusua l for you, your pain is concerning for you, you have a fever and your temperature is above 100.5 Follow-up/Referrals: Eyal Patterson MD [Primary Care Provider] - 09/11/18 10:00 am (Please, follow up at Dr. Patterson's office with his certified nursing assistant, Mer Rowe PA-C on TuesdaySeptember 11 at 10:00 am. *If you need to change this appointment, call the office at [phone].) Diet: Regular Addtl Provider Instructions: You were admitted with chest pain and found to have blood clots in your lungs called pulmonary emboli. You were started on a blood thinner called Eliquis to treat these and should remain on this for at least 6 months. Please follow up with your PCP as scheduled for you. It is important that you be screened for colon cancer to ensure that there is not an underlying cancer causing your blood clots. You were also treated for a pneumonia with an antibiotic and will need to finish out the course of antibiotics as prescribed for you. It is important to control your pain and take deep breaths to fully expand your lungs. If you develop worsening chest pain or shortness of breath , bleeding in your stool or urine, coughing up blood, fevers, develop a severe headache, or sustain a significant trauma to the head or a deep wound, please go to the hospital immediately. Please have Dr. Patterson repeat the CT scan of your chest in 6-8 weeks to ensure your pneumonia has cleared up. Please follow up with Dr. Patterson as scheduled for you. Prescriptions: New levofloxacin 750 mg Tablet 750 mg PO DAILY Qty: 3 RF: 0 Eliquis 5 mg Tablet 10 mg PO BID Qty: 68 RF: 0 acetaminophen [Mapap (acetaminophen)] 325 mg Tablet 650 mg PO Q4H PRN (Reason: pain) Qty: 30 RF: 0 Discontinued diclofenac sodium 50 mg tablet,delayed release (DR/EC) 50 mg PO DIRECTED PRN (Reason: Inflammation) RF: 0 Excedrin Extra Strength 250-250-65 mg Tablet 2 tab PO Q6H PRN (Reason: Pain) RF: 0 Vicks NyQuil Cold/Flu (cpm) 4-30-650 mg/30 mL Liquid 30 ml PO DIRECTED RF: 0 Stand-Alone Forms: Call Back Authorization, [facility], Work/School Release (Inpt) Discharge Orders: Discharge Order (Routine); Ordered 09/08/18 Ordered By: Sweta Mc Admission Data Admit Date/Time: 09/04/18 15:31 Attending Provider: Sweta Mc Admit Provider: Donna Butterfield Primary Care Provider: Eyal Patterson Other Providers: Donna Butterfield Service: Telemetry Medical Other Interventions: Discharge Summary Assessment (RN) Last Done: 09/08/18 16:09 Pending Studies at Discharge: Yes Studies:: Hypercoagulable workup DC Date/Time DO NOT enter until pt leaves facility: 09/08/18 17:05
--- OUTSIDE RECORDS SUMMARY | 2018-09-11 15:15 | External Medical Summary | Continuity of Care Document ---
:1965 Author Name Jose Knapp, Provider Address Unavailable Unavailable , Care Team Providers Name Role Phone Eyal Patterson M.D. Unavailable [email or web address], [email or web address] Unavailable Unavailable Unavailable Unavailable Unavailable Problems Bacterial pneumonia (482.9) (J15.9) Pulmonary embolism (415.19) (I26.99) Encounter for screening for diabetes mellitus (V77.1) (Z13.1 ) Lumbar radiculopathy (724.4) (M54.16) Dyslipidemia (272.4) (E78.5) Onychomycosis of toenail (110.1) (B35.1) Headache (784.0) (R51) Allergies and Adverse Reactions No Known Drug Allergies (Allergy) Medications Eliquis 5 MG Oral Tablet; Take 1 tablet twice daily Start: 11-Sep-2018 Quantity: 28 Refills: [address] (Chest) Thorax w/o Contrast Date: 11-Sep-2018 History of Oral Surgery Tooth Extraction Status: Completed Immunizations Influenza On: 14-Mar-2015 Family History Father Family history of Acute Myocardial Infarction (V17.3) Status : Active Mother Family history of CABG Status: Active Family history of Diabetes Mellitus (V18.0) Status: Active Social History - Smoking Status Never smoker Plan of Treatment Planned Encounters Appointment; Eyal Patterson M.D. Start: 02-Jul-2019 14:00 Req uest Planned Observations Planned Goals not documented Results CT (Chest for PE)Angiography with Contrast Laboratory: [facility] Diagnostic Imaging 1800 (Pending) Bernadette Leroy [place] PA 04-Sep-2018 14:29 CT CHEST FOR PE ANGIO WITH [facility], CASAN[place]A [phone] CT Scan Report Patient: YUNIOR MOSES Admit Date: 09/04/18 MR#: [id number] Address1: [facility] Acct ID:[id number] Address2: Date: 1965 [facility] Zip: [place] [address] Age: 52 Location: ED Sex: M Room/Bed: Att Phy: Diagnosis: CHEST PAIN Rachel Phy: Eyal Patterson MD Service Date : 0 09/04/18 [facility] Phy: Interpreting Phy: Benjy Mak MD Admit Phy: Ordering Phy: Carol Lal PA-C cc: CT angio chest PE protocol CT DOSE: 508.26 mGy.cm HISTORY: Chest pain left sided cp, infiltrate vs mass on outside cxr TECHNIQUE: Multiaxial C T images of the chest were performed following the intravenous administration of contrast to evaluate the pulmonary arteries. Maximal intensity projection images were also obtained. A dose lowering technique was utilized adhering to the principles of ALARA. COMPARISON STUDY: None. FINDINGS: Thoracic aorta is normal in course and caliber. There are bibasilar parenchymal infiltrative changes. There is a small focal consolidative infiltrat e lateral aspect left upper lobe. There are filling defects within the second third order vessels of the left lower lobe pulmonary vasculature as well as right upper lobe pulmonary vasculature. There is no evidence for a major central or saddle embolus. IMPRESSION: 1. Study is positive for bilateral pulmonary emboli. 2. Basilar parenchymal infiltrative change. 3. Small focal consolidative infiltrate lateral aspect left upper lobe. 4. No evidence for pulmonary arterial hypertension or right heart strain. The abov e report was generated using voice recognition software. It may contain grammatical, syntax or spelling errors. Electronically signed by: Benjy Mak M.D. 09/04/2018 2:34 PM Dictated: 09/04/181428 Transcribed: 09/04/18 142 Ultrasound Venous Doppler Lwr Ext Bila Laboratory: [facility] Diagnostic Imaging 1800 (Pending) Bernadette Bello [facility] [place] 04-Sep-2018 16:38 US Venoous Doppler Lwr Ext Bila [facility], [place] [phone] Ultrasound Report Patient: YUNIOR MOSES Admit Date: 09/04/18 MR#: [id number] Address[address]: [address] Acct ID:[id number] Address2: Date: 1965 [facility] Zip: [place] [address] Age: 52 Location: ED Sex: M Room/Bed: Att Phy: Diagnosis: CHEST PAIN Rachel Phy: Eyal Patterson MD Service Date : 0 09/04/18 [facility] Phy: Interpreting Phy: Sloan farias MD Admit Phy: Ordering Phy: Carol Lal PA-C cc: BILATERAL LOWER EXTREMITY VENOUS DOPPLER HISTORY: Pulmonary embolus. Assess for DVT. COMPARISON STUDY: None. FINDINGS: There is normal compressibility, flow, and augmentation within the bilateral lower extremity deep venous systems. IMPRESSION: No DVT within the right or left lower extremity. Electronically signed by: Sloan Haque M.D. 09/04/2018 4:38 PM Dictated: 09/04/18 163 Transcribed: 09/04/18 163 Vital Signs 11-Sep-2018 9:53 Systolic 120 mm[Hg] Comments: Location: LUE; Position: Sitting Diastolic 84 mm[Hg] Comments: Location: LUE; Position: Sitting O2 Saturation 98 % Heart Rate 74 /min Comments: Location: L Radial; Quality: Normal Respiration 16 /min Comments: Quality: N ormal Weight 207 lb Height 71 in BSA Calculated 2.14 m2 BMI Calculated 28.87 kg/m2 Encounters Appointment; Mer Rowe PA-C 11-Sep-2018 10:00 Encounter Diagnosis: Problem not documented Appointment; Eyal Patterson M.D. 30-Jun-2018 14:00 Encounter Diagnosis: Problem not documented Appointment; Mer Rowe PA-C 26-Dec-2017 9:00 Encounter Diagnosis: Problem not documented Appointment; Eyal Patterson M.D. 02-Jul-2019 14:00 Encounter Diagnosis: Problem not documented
[2018-09-12] MEDS ORDERED: APIXABAN 5 MG TABLET PO SCH (21:00)
[2018-09-15 17:54] LABS: Anti Cardiolipin Ab IgG <14 GPL (< = 14); Anti Cardiolipin Ab IgM <12 MPL (< = 12); Anti-Thrombin III Activity 111 % activity (80-120); B2 Glycoprotein IgA <9 SAU (<=20); B2 Glycoprotein IgG <9 SGU (<=20); B2 Glycoprotein IgM <9 SMU (<=20); Lupus Anticoagulant Weak Positive (Negative); Protein S Functional(Activity) 74 % (70-150)
== END 2018-09-08 17:05 | disposition home or self-care (01) | DRG 175 ==
LOC: ED 12:22 → 2W 15:31 → SUATTDRO 15:31 → 2W 17:23
DX: R17 Unspecified jaundice; D72.829 Elevated white blood cell count, unspecified; J18.9 Pneumonia, unspecified organism; Z82.49 Family history of ischemic heart disease and other diseases of the circulatory system; K59.00 Constipation, unspecified; I26.99 Other pulmonary embolism without acute cor pulmonale